=== PATIENT | female | born 1970 | race Caucasian/White ===

== ENCOUNTER 2017-03-20 07:28 | Emergency (ER) | payer OTHER ==
[~2017-03-20] VITALS: Ht 180.3 cm; Wt 84.1 kg
[2017-03-20 07:32] VITALS: BP 151/99
[2017-03-20] MEDS ORDERED: OXYcodone/APAP 5/325MG TABLET PO ONE (08:00)
[2017-03-20] MEDS ORDERED: ONDANSETRON ODT 4 MG PO ONE (08:00)
[2017-03-20] MEDS ORDERED: OXYcodone/APAP 5/325MG TABLET ONE (08:45)
[2017-03-20] MEDS ORDERED: ONDANSETRON ODT 4 MG ONE (08:45)
[2017-03-20] MEDS ORDERED: HYDROcodone/APAP 5/325 TABLET ONE (08:51)
[2017-03-20] MEDS ORDERED: HYDROcodone/APAP 5/325 TABLET PO ONE (09:00)
[2017-03-20] MEDS ORDERED: ALPR1TAB10 SL (09:08)
[2017-03-20] MEDS ORDERED: RANI-276 PO (09:08)
[2017-03-20] MEDS ORDERED: TRAM50TA2 PO (09:08)
[2017-03-20] MEDS ORDERED: ESTA1TAB PO (09:08)
[2017-03-20] MEDS ORDERED: OXYB5TAB7 PO (09:08)
== END 2017-03-20 09:41 | disposition home or self-care (01) ==
LOC: ED 09:03
DX: S22.31XA Fracture of one rib, right side, initial encounter for closed fracture (principal); S27.9XXA Injury of unspecified intrathoracic organ, initial encounter; X58.XXXA Exposure to other specified factors, initial encounter; Y93.89 Activity, other specified; Y92.59 Other trade areas as the place of occurrence of the external cause; Y99.8 Other external cause status
CPT/HCPCS: 71101; 93005; 99284; Q0162

== ENCOUNTER → 2017-04-10 | Outpatient (CLI) | payer OTHER ==
[~2017-04-10] MED LIST: ALPR1TAB10 SL; ESTA1TAB PO; OXYB5TAB7 PO; RANI-276 PO; TRAM50TA2 PO
== END | disposition home or self-care (01) ==
LOC: CFH 11:06
PROVIDERS: ATTEND Nurse Practitioner
DX: Z12.31 Encounter for screening mammogram for malignant neoplasm of breast (principal); Z13.820 Encounter for screening for osteoporosis; Z78.0 Asymptomatic menopausal state; S22.43XS Multiple fractures of ribs, bilateral, sequela; X58.XXXS Exposure to other specified factors, sequela
CPT/HCPCS: 77063; 77080; 77067

== ENCOUNTER 2018-09-14 13:30 | Outpatient (CLI) | payer OTHER ==
[~2018-09-14 13:30] MED LIST changes: -RANI-276 PO; +RANI-448 PO
== END 2018-09-14 23:59 | disposition home or self-care (01) ==
LOC: RAD 13:30
PROVIDERS: ATTEND Nurse Practitioner Family
DX: K21.0 Gastro-esophageal reflux disease with esophagitis (principal); K29.70 Gastritis, unspecified, without bleeding; R19.7 Diarrhea, unspecified
CPT/HCPCS: 74220

== ENCOUNTER 2019-03-07 18:06 | Emergency (ER) | payer OTHER ==
[~2019-03-07] VITALS: Ht 177.8 cm; Wt 88.5 kg
[~2019-03-07 18:06] MED LIST changes: +OXYB5TAB10 PO; -OXYB5TAB7 PO
[2019-03-07] MEDS ORDERED: ASPIRIN 81 MG TABLET CHEW ONE (18:16)
[2019-03-07] MEDS ORDERED: ASPIRIN 81 MG TABLET CHEW PO ONE (18:30)
[2019-03-07 18:38] LABS: BASOPHILS # (AUTO) 0.02 x10^3/uL (0-0.1); BASOPHILS % (AUTO) 1 % (0-1); EOSINOPHILS # (AUTO) 0.03 x10^3/uL (0-0.4); EOSINOPHILS % (AUTO) 1 % (1-7); LYMPHOCYTES # (AUTO) 1.05 x10^3/uL (1-3.4); LYMPHOCYTES % (AUTO) 34 % (22-44); MD NO; MEAN CORPUSCULAR HEMOGLOBIN 31.6 pg (27.0-34.8); MEAN CORPUSCULAR HGB CONC 33.4 g/dL (32.4-35.8); MEAN CORPUSCULAR VOLUME 94.4 fL (80-100); MEAN PLATELET VOLUME 10.2 fL (7.4-10.4); MONOCYTES # (AUTO) 0.26 x10^3/uL (0.2-0.8); MONOCYTES % (AUTO) 8 % (2-9); NEUTROPHILS # (AUTO) 1.77 x10^3/uL (1.8-6.8); NEUTROPHILS % (AUTO) 57 % (42-75); PLATELET COUNT 121 x10^3/uL (130-400); RED BLOOD COUNT 4.63 x10^6/uL (3.82-5.3); RED CELL DISTRIBUTION WIDTH 14.6 % (9.6-15.2)
[2019-03-07 18:55] LABS: ALBUMIN 4.3 g/dL (3.4-5.0); ANION GAP 11 mmol/L (5-15); CALCIUM 8.9 mg/dL (8.5-10.1); CHLORIDE 103 mmol/L (98-107); CREATININE 0.71 mg/dL (0.55-1.02)
[2019-03-07 18:59] LABS: TROPONIN I < 0.015 ng/mL (0.000-0.045)
--- NOTE | 2019-03-07 19:05 | NUR ---
PT TO ROOM FROM LOBBY
--- NOTE | 2019-03-07 19:15 | NUR ---
PT C/O N/V/D/CP X3 DAYS AGO. PT WENT TO URGENT CARE TODAY AND THEY REFERRED HER TO ED. PT REPORTS BEING UNABLE TO KEEP DOWN FOOD OR FLUIDS. REPORTS BODY ACHES, FATIGUE, AND OCCASIONAL SOB. PT DOESNT THINK SHE GOT HER FLU SHOT THIS YEAR. PT DENIES ANY OTHER C/O AT THIS TIME. PT CONNECTED TO ALL MONITORING, CALL LIGHT WITHIN REACH, ALL SAFETY MEASURES IN PLACE.
--- NOTE | 2019-03-07 19:24 | NUR ---
PT ALSO REPORTS CURRENT UTI, TAKING NITROFURANTOIN.
[2019-03-07] MEDS ORDERED: FAMOTIDINE 20 MG/2 ML IV ONE (20:00)
[2019-03-07] MEDS ORDERED: MAALOX/HYOSCYAMINE/LIDOCAINE 45 ML BTL PO ONE (20:00)
[2019-03-07] MEDS ORDERED: SODIUM CHLORIDE FLUSH 10ML SYR IVF ONE (20:00)
[2019-03-07] MEDS ORDERED: ONDANSETRON 2MG/ML, 2ML IVPush ONE (20:00)
[2019-03-07] MEDS ORDERED: ONDANSETRON 2MG/ML, 2ML ONE (20:03)
[2019-03-07] MEDS ORDERED: MAALOX/HYOSCYAMINE/LIDOCAINE 45 ML BTL ONE (20:03)
[2019-03-07] MEDS ORDERED: FAMOTIDINE 20 MG/2 ML ONE (20:03)
--- NOTE | 2019-03-07 20:24 | NUR ---
PT RESTING ON [facility]. MEDICATED PER APR. ALL MONITORING IN PLACE.
[2019-03-07 21:24] LABS: MICROSCOPIC AUTO
[2019-03-07 21:32] LABS: CULTURE INDICATED? YES
[2019-03-07] MEDS ORDERED: PROMETHAZINE 25 MG/ML, 1ML IM STA (21:45)
--- NOTE | 2019-03-07 21:51 | NUR ---
PT RESTING AT WATCHING TV. PT REPORTS DECEREASED NAUSEA. PT UPDATED ON POC. MONITORING STILL IN PLACE.
[2019-03-07] MEDS ORDERED: CEFTRIAXONE PMX 1GM/50ML 50 ML IV ONE (22:00)
[2019-03-07] MEDS ORDERED: CEFTRIAXONE PMX 1GM/50ML 50 ML ONE (22:04)
[2019-03-07] MEDS ORDERED: PROMETHAZINE 25 MG/ML, 1ML ONE (22:04)
--- NOTE | 2019-03-07 22:24 | NUR ---
Patient/Caregiver given discharge instructions and they have confirmed that they understand the instructions. Patient ambulatory with steady gait.
[2019-03-07 23:15] VITALS: BP 138/79
== END 2019-03-07 23:18 | disposition home or self-care (01) ==
LOC: ED 20:38
DX: K29.00 Acute gastritis without bleeding (principal); N30.00 Acute cystitis without hematuria; R07.89 Other chest pain; M19.90 Unspecified osteoarthritis, unspecified site
CPT/HCPCS: 36415; 71046; 80048; 81001; 82040; 83690; 84484; 84703; 85025; 87086; 93005; 96365; 96372; 96375; 99284; J0696; J2405; J2550; J3490

== ENCOUNTER 2019-05-02 14:11 | Emergency (ER) | payer OTHER ==
[~2019-05-02] VITALS: Ht 177.8 cm; Wt 86.1 kg
[~2019-05-02 14:11] MED LIST changes: -RANI-448 PO; +RANI-460 PO
--- NOTE | 2019-05-02 14:20 | NUR ---
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
[2019-05-02 15:36] LABS: BASOPHILS # (AUTO) 0.02 x10^3/uL (0-0.1); BASOPHILS % (AUTO) 0 % (0-1); EOSINOPHILS # (AUTO) 0.03 x10^3/uL (0-0.4); EOSINOPHILS % (AUTO) 1 % (1-7); LYMPHOCYTES # (AUTO) 0.88 x10^3/uL (1-3.4); LYMPHOCYTES % (AUTO) 21 % (22-44); MD NO; MEAN CORPUSCULAR HEMOGLOBIN 31.5 pg (27.0-34.8); MEAN CORPUSCULAR VOLUME 92.9 fL (80-100); MEAN PLATELET VOLUME 10.4 fL (7.4-10.4); MONOCYTES # (AUTO) 0.37 x10^3/uL (0.2-0.8); MONOCYTES % (AUTO) 9 % (2-9); NEUTROPHILS # (AUTO) 2.94 x10^3/uL (1.8-6.8); NEUTROPHILS % (AUTO) 69 % (42-75); PLATELET COUNT 128 x10^3/uL (130-400); RED BLOOD COUNT 4.44 x10^6/uL (3.82-5.3); RED CELL DISTRIBUTION WIDTH 14.1 % (9.6-15.2)
[2019-05-02 15:48] LABS: ANION GAP 11 mmol/L (5-15); CALCIUM 9.3 mg/dL (8.5-10.1); CHLORIDE 106 mmol/L (98-107); CREATININE 0.56 mg/dL (0.55-1.02)
[2019-05-02 15:49] LABS: ALANINE AMINOTRANSFERASE 45 U/L (12-78)
[2019-05-02 15:51] LABS: ALKALINE PHOSPHATASE 85 U/L (45-117); BILIRUBIN,TOTAL 0.5 mg/dL (0.2-1.0); TOTAL PROTEIN 7.5 g/dL (6.4-8.2)
--- NOTE | 2019-05-02 18:48 | NUR ---
pt to room from lobby
--- NOTE | 2019-05-02 19:13 | NUR ---
PT. TO ED WITH C/O EPIGASTIC ABD PAIN OFF/ON X8 MONTHS; STATES DAILY DRINKER OF AT LEAST 3 GLASSES OF WINE PER DAY; EDUCATED ON REASONS FOR CESSATION. PT. C/O BURNING PAIN. ALSO C/O PAINFUL URINATION(TAKING OTC MEDS FOR THIS). URINE SAMPLE SENT TO LAB. NEY HAMPTON WAS IN TO EVAL PT. AND DISCUSS POC. CONTINUOUS PULSE OX AND B/P MONITORS PLACED. CALL LIGHT IN REACH.
[2019-05-02] MEDS ORDERED: MAALOX/HYOSCYAMINE/LIDOCAINE 45 ML BTL PO ONE (19:30)
[2019-05-02 19:40] LABS: MICROSCOPIC INDICATED
[2019-05-02 19:42] LABS: TROPONIN I < 0.015 ng/mL (0.000-0.045)
[2019-05-02 19:48] LABS: CULTURE INDICATED? NO
[2019-05-02 20:17] VITALS: BP 142/79
--- NOTE | 2019-05-02 20:18 | NUR ---
PT. REPORTS PAIN IS MOSTLY GONE AT THIS TIME. PT. WAS ABLE TO DRINK 2 BOTTLES OF WATER AND EAT CRACKERS. PT. AWARE OF PLAN FOR D/C.
== END 2019-05-02 20:43 | disposition home or self-care (01) ==
LOC: ED 15:11
DX: K29.50 Unspecified chronic gastritis without bleeding (principal); R11.2 Nausea with vomiting, unspecified; R00.0 Tachycardia, unspecified; F17.210 Nicotine dependence, cigarettes, uncomplicated
CPT/HCPCS: 36415; 80053; 81001; 83690; 84484; 85025; 93005; 99284